=== PATIENT | female | born 1995 | race Caucasian/White ===

== ENCOUNTER 2023-09-25 15:42 | Emergency (ER) | payer OTHER, SELFPAY ==
[2023-09-25 15:45] VITALS: BP 137/87
[2023-09-25 16:17] LABS: % Basophils 0.2 % (0-2); % Eosinophils 1.1 % (0-6); % Immature Granulocytes 0.6 % (0-0.5); % Monocytes 3.9 % (1.7-9.3); % Neutrophils 81.2 % (42.2-75.2); Absolute Eosinophils 0.1 10^3/uL (0-0.7); Absolute Immature Granulocytes 0.1 10^3/uL (0-0.05); Absolute Lymphocytes 1.2 10^3/uL (1.2-3.4); Absolute Monocytes 0.4 10^3/uL (0.1-0.6); Absolute Neutrophils 7.7 10^3/uL (1.4-6.5); Hemoglobin 11.9 g/dL (12.0-16.0); Mean Corpuscular Hgb 29.8 pg (27.0-31.0); Mean Corpuscular Volume 85.2 fL (81.0-99.0); Mean Platelet Volume 10.6 fL (7.4-10.4); Nucleated Red Blood Cells % 0 %; Platelet Count 338 10^3/uL (130-400); Red Blood Cell Count 3.99 10^6/uL (4.20-5.40); Red Cell Dist. Width 14.1 % (11.5-14.5); White Blood Cell Count 9.4 10^3/uL (4.8-10.8)
[2023-09-25 16:32] LABS: ALT (SGPT) 23 U/L (0-35); AST (SGOT) 23 U/L (14-36); Albumin 4.1 g/dl (3.5-5.0); Alkaline Phosphatase 81 U/L (38-126); Blood Urea Nitrogen 6 mg/dl (7-17); Calcium 9.7 mg/dl (8.4-10.2); Carbon Dioxide 18 mmol/L (22-30); Chloride 105 mmol/L (98-107); Glucose 84 mg/dl (70-99); Potassium 3.9 mmol/L (3.5-5.1); Sodium 133 mmol/L (135-145); Total Bilirubin 0.5 mg/dl (0.2-1.3); Total Protein 7.1 g/dl (6.3-8.2); eGFR > 60.00
[2023-09-25] MEDS: NSS 1000 IV (18:07)
[2023-09-25] MEDS: ZOFRAN 4 MG IV (18:08)
[2023-09-25 18:17] VITALS: BP 120/87
--- NOTE | 2023-09-25 19:59 | ED.GENMED ---
History of Present Illness
General
Chief Complaint: Abdominal Symptoms
Source: patient
Exam Limitations: none
Time Seen by Provider: 09/25/23 17:38
Nursing documentation reviewed up to this point in time: agreed with
History of Present Illness
History of Present Illness:
Patient to ED wt complaint of worsening n/v. She is 15weeks . States she has had episodes of n/v since becoming , increasing in frequency. Denes any abdominal or back pain. Denies any cramping. No vaginal bleeding Brought to
ED by spouse for eval.
Past History
Past History
ED Past Medical History: None
ED Past Surgical History: None
Review of Systems
Review of Systems
Allergies reviewed?: Yes
All Other Systems: ROS reviewed and negative except as documented in HPI and ROS
Constitutional: Reports no symptoms
EENT: Reports no symptoms
Respiratory: Reports no symptoms
Cardiac: Reports no symptoms
ABD/GI: Reports nausea and vomiting
: Reports no symptoms
Musculoskeletal: Reports no symptoms
Skin: Reports no symptoms
Neurological: Reports no symptoms
Psychiatric: Reports no symptoms
Phy Exam
General Physical Exam
General Presentation: mild distress
General age: appears stated age
General Skin: warm and dry
General Habitus: normal
General Mental: alert
Gastrointestinal Exam
Gastrointestinal Exam: non tender and soft
Musculoskeletal Exam
Musculoskeletal Exam: full ROM and neuro vasc intact
Skin Exam
Skin Exam: normal color, warm/dry and no rash
Psychiatric Exam
Psychiatric Exam: normal mood/affect
Course
Orders/Labs/Results
Orders:
Orders
09/25/23 15:54
Complete Blood Count/With Diff Urgent
Comprehensive Metabolic Panel Urgent
09/25/23 17:51
0.9% Sodium Chloride 1000 ml [Nss] 1,000 ml IV BOLUS
09/25/23 17:55
0.9% Sodium Chloride 1000 ml [Nss] 1,000 ml IV BOLUS
Ondansetron Injectable [Zofran] 4 mg IV NOW STA
09/25/23 19:56
Ondansetron Orally Disint [Zofran Odt (Orally Disintegrating)] 4 mg PO NOW STA
Abnormal Lab Results
09/25/23
15:54
RBC 3.99 L 10^6/uL
(4.20-5.40)
Hgb 11.9 L g/dL
(12.0-16.0)
Hct 34.0 L %
(37.0-47.0)
MPV 10.6 H fL
(7.4-10.4)
Abs Immat Gran (auto) 0.1 H 10^3/uL
(0-0.05)
Absolute Neuts (auto) 7.7 H 10^3/uL
(1.4-6.5)
Immature Gran % 0.6 H %
(0-0.5)
Neutrophils % 81.2 H %
(42.2-75.2)
Lymphocytes % 13.0 L %
(20.5-51.1)
Sodium 133 L mmol/L
(135-145)
Carbon Dioxide 18 L mmol/L
(22-30)
BUN 6 L mg/dl
(7-17)
Creatinine 0.5 L mg/dL
(0.6-1.0)
09/25/23 15:54
09/25/23 15:54
Vital Signs
Initial and Last Documented VS:
Initial Vital Signs
Temp Pulse Resp BP Pulse Ox
98.0 F 102 16 137/87 98
09/25/23 15:45 09/25/23 15:45 09/25/23 15:45 09/25/23 15:45 09/25/23 15:45
Last Documented Vital Signs
Temp Pulse Resp BP Pulse Ox
98.2 F 101 17 122/81 100
09/25/23 20:05 09/25/23 20:05 09/25/23 18:17 09/25/23 20:05 09/25/23 20:05
*Critical Care Note
Total Time (30-74mins, 75-104mins- exclusive of procedures): Not Applicable
Update Note
Update Note:
Improved iwth IVF and zofran. No futher n/v in dept. WIll discharge home. Rx for diclegis sent to her pharmacy. She will follow up with OB in AM. Given instructions ons/s to return to ED and she is agreeable to plan.
ED Attending Note
-
Portions of this chart may have been created with voice recognition software.� Occasional wrong word or��sound alike� substitutions may have occurred due to the inherent limitations of voice recognition software.
Discharge Plan
Departure
Patient Disposition: Home (Routine Discharge)
Date of Disposition: 09/25/23
Time of Disposition: 19:59
Patient with high blood pressure during this ER visit?: No
Condition: Good
Covid-19: Not Applicable
Discharge Problem:
Hyperemesis gravidarum
Instructions: Hyperemesis Gravidarum (DC)
Prescriptions:
New
doxylamine-pyridoxine (vit B6) [Diclegis] 10-10 mg tablet,delayed release (DR/EC)
1 tab PO DAILY PRN (Reason: nausea and vomiting) Qty: 30 0RF
Rx Instructions:
2 tabs at bedtime days 1 and 2. May increase to 1 tab in the AM, 2 tabs at bedtime.
Referrals:
Mick Singer MD [Family Provider] -
Arlene Klein MD [Active] - Tomorrow
Interventions
Interventions:
*Risk Screen - Suicide Last Done: 09/25/23 20:06
*General Assessment Last Done: 09/25/23 20:06
*Neglect/Abuse Screening Last Done: 09/25/23 20:06
ED- Fall Risk Assessment Last Done: 09/25/23 20:10
*Nursing Disposition Last Done: 09/25/23 20:10
VD-Cimmmw-Qhyketqsqa Assessment Last Done: 09/25/23 18:19
Discharge Date and Time
Discharge Date/Time: 09/25/23 20:10
Print Language: BRUNEIAN
[2023-09-25] MEDS: ZOFRAN ODT (ORALLY DISINTEGRATING) 4 MG PO (20:01)
[2023-09-25 20:05] VITALS: BP 122/81
== END 2023-09-25 20:10 | disposition home or self-care (01) ==
LOC: EMR 15:42
PROVIDERS: EMERGENCY PHYSICIAN Emergency Medicine; FAMILY PHYSICIAN Family Medicine
DX: O21.0 Mild hyperemesis gravidarum (principal); Z3A.15 15 weeks gestation of pregnancy; Z88.1 Allergy status to other antibiotic agents
CPT/HCPCS: 99284; 96374; 96361; 80053; 85025

== ENCOUNTER → 2023-10-03 17:08 | Outpatient (REF) | payer OTHER, SELFPAY | LOC: PNTC 17:08 | PROVIDERS: ATTENDING PHYSICIAN Obstetrics & Gynecology | DX: O99.210 Obesity complicating pregnancy, unspecified trimester (principal) | CPT/HCPCS: 76805 ==

== ENCOUNTER → 2023-10-31 17:35 | Outpatient (REF) | payer OTHER, SELFPAY | LOC: PNTC 17:35 | PROVIDERS: ATTENDING PHYSICIAN Obstetrics & Gynecology | DX: O99.210 Obesity complicating pregnancy, unspecified trimester (principal) | CPT/HCPCS: 76811 ==

== ENCOUNTER → 2023-12-12 17:05 | Outpatient (REF) | payer OTHER, SELFPAY | LOC: PNTC 17:05 | PROVIDERS: ATTENDING PHYSICIAN Obstetrics & Gynecology | DX: O99.210 Obesity complicating pregnancy, unspecified trimester (principal) | CPT/HCPCS: 76816 ==

== ENCOUNTER → 2024-01-11 17:12 | Outpatient (REF) | payer OTHER, SELFPAY | LOC: PNTC 17:12 | PROVIDERS: ATTENDING PHYSICIAN Obstetrics & Gynecology | DX: O99.210 Obesity complicating pregnancy, unspecified trimester (principal) | CPT/HCPCS: 76816 ==

== ENCOUNTER → 2024-02-06 17:16 | Outpatient (REF) | payer OTHER, SELFPAY | LOC: PNTC 17:16 | PROVIDERS: ATTENDING PHYSICIAN Obstetrics & Gynecology | DX: O99.210 Obesity complicating pregnancy, unspecified trimester (principal) | CPT/HCPCS: 59025; 76816 ==

== ENCOUNTER → 2024-02-13 10:18 | Outpatient (REF) | payer OTHER, SELFPAY | LOC: PNTC 10:18 | PROVIDERS: ATTENDING PHYSICIAN Obstetrics & Gynecology | DX: O99.210 Obesity complicating pregnancy, unspecified trimester (principal) | CPT/HCPCS: 59025; 76815 ==

== ENCOUNTER → 2024-02-19 13:34 | Outpatient (REF) | payer OTHER, SELFPAY | LOC: PNTC 13:34 | PROVIDERS: ATTENDING PHYSICIAN Obstetrics & Gynecology | DX: O99.210 Obesity complicating pregnancy, unspecified trimester (principal) | CPT/HCPCS: 59025; 76815 ==

== ENCOUNTER → 2024-02-29 17:04 | Outpatient (REF) | payer OTHER, SELFPAY | LOC: PNTC 17:04 | PROVIDERS: ATTENDING PHYSICIAN Obstetrics & Gynecology | DX: O99.210 Obesity complicating pregnancy, unspecified trimester (principal) | CPT/HCPCS: 59025 ==

== ENCOUNTER → 2024-03-07 16:57 | Outpatient (REF) | payer OTHER, SELFPAY | LOC: PNTC 16:57 | PROVIDERS: ATTENDING PHYSICIAN Obstetrics & Gynecology | DX: O99.210 Obesity complicating pregnancy, unspecified trimester (principal) | CPT/HCPCS: 59025 ==

== ENCOUNTER 2024-03-12 19:10 | Inpatient (IN) | payer OTHER, SELFPAY ==
[2024-03-12 19:46] VITALS: BP 136/88; BMI 42.1
[2024-03-12 19:52] LABS: % Basophils 0.5 % (0-2); % Eosinophils 1.2 % (0-6); % Immature Granulocytes 1.7 % (0-0.5); % Lymphocytes 21.6 % (20.5-51.1); % Monocytes 4.9 % (1.7-9.3); % Neutrophils 70.1 % (42.2-75.2); Absolute Eosinophils 0.1 10^3/uL (0-0.7); Absolute Immature Granulocytes 0.1 10^3/uL (0-0.05); Absolute Lymphocytes 1.7 10^3/uL (1.2-3.4); Absolute Monocytes 0.4 10^3/uL (0.1-0.6); Absolute Neutrophils 5.6 10^3/uL (1.4-6.5); Hematocrit 31.9 % (37.0-47.0); Hemoglobin 10.8 g/dL (12.0-16.0); Mean Corp Hgb Conc. 33.9 g/dL (33.0-37.0); Mean Corpuscular Hgb 30.3 pg (27.0-31.0); Mean Corpuscular Volume 89.4 fL (81.0-99.0); Mean Platelet Volume 11.1 fL (7.4-10.4); Nucleated Red Blood Cells % 0 %; Platelet Count 289 10^3/uL (130-400); Red Blood Cell Count 3.57 10^6/uL (4.20-5.40); Red Cell Dist. Width 14.8 % (11.5-14.5)
[2024-03-12] MEDS: CYTOTEC 50 MICROGRAM VAG (20:18)
[2024-03-12 20:45] LABS: ALT (SGPT) 49 U/L (0-35); AST (SGOT) 58 U/L (14-36); Albumin 3.8 g/dl (3.5-5.0); Alkaline Phosphatase 158 U/L (38-126); Blood Urea Nitrogen 9 mg/dl (7-17); Calcium 9.4 mg/dl (8.4-10.2); Carbon Dioxide 21 mmol/L (22-30); Chloride 101 mmol/L (98-107); Estimated Creatinine Clearance > 125 ml/min; Glucose 103 mg/dl (70-99); Potassium 3.7 mmol/L (3.5-5.1); Sodium 134 mmol/L (135-145); Total Bilirubin 0.4 mg/dl (0.2-1.3); Total Protein 6.7 g/dl (6.3-8.2); eGFR > 60.00
[2024-03-13] MEDS: CYTOTEC PO ×5 (03:15→20:18)
[2024-03-13] MEDS: CYTOTEC 50 MICROGRAM PO (03:51)
--- NOTE | 2024-03-13 04:35 | DOWNTIME ---
There was a [employer] Client Disability Attorney Downtime on 03/13/2024 from 0100 to 03/13/2023 at 0205 . Downtime documentation of patient's care, including medication administrations, has been reconciled in the electronic record per guidelines. Refer to the
patient's paper chart under the miscellaneous tab to see printed paper medication records and downtime forms.
[2024-03-13] MEDS: TUMS CHEWABLE TABLET 400 MG PO (05:00)
[2024-03-13] MEDS: ZOFRAN 4 MG IV ×2 (05:44→17:10)
[2024-03-13 09:10] LABS: % Basophils 0.3 % (0-2); % Eosinophils 0.4 % (0-6); % Lymphocytes 9.5 % (20.5-51.1); % Monocytes 5.6 % (1.7-9.3); % Neutrophils 83.2 % (42.2-75.2); Absolute Eosinophils 0.1 10^3/uL (0-0.7); Absolute Immature Granulocytes 0.1 10^3/uL (0-0.05); Absolute Lymphocytes 1.2 10^3/uL (1.2-3.4); Absolute Monocytes 0.7 10^3/uL (0.1-0.6); Absolute Neutrophils 10.3 10^3/uL (1.4-6.5); Hematocrit 29.8 % (37.0-47.0); Hemoglobin 10.3 g/dL (12.0-16.0); Mean Corp Hgb Conc. 34.6 g/dL (33.0-37.0); Mean Corpuscular Volume 89.8 fL (81.0-99.0); Mean Platelet Volume 11.2 fL (7.4-10.4); Nucleated Red Blood Cells % 0 %; Platelet Count 269 10^3/uL (130-400); Red Blood Cell Count 3.32 10^6/uL (4.20-5.40); Red Cell Dist. Width 14.7 % (11.5-14.5); White Blood Cell Count 12.4 10^3/uL (4.8-10.8)
[2024-03-13] MEDS: LR 1000 IV ×2 (09:14→18:08)
[2024-03-13] MEDS: PITOCIN 30 UNITS/NSS 500 ML IV (09:14)
[2024-03-13 09:26] LABS: ALT (SGPT) 50 U/L (0-35); AST (SGOT) 52 U/L (14-36); Albumin 3.5 g/dl (3.5-5.0); Alkaline Phosphatase 168 U/L (38-126); Blood Urea Nitrogen 9 mg/dl (7-17); Calcium 9.1 mg/dl (8.4-10.2); Carbon Dioxide 20 mmol/L (22-30); Chloride 104 mmol/L (98-107); Estimated Creatinine Clearance > 125 ml/min; Glucose 86 mg/dl (70-99); Potassium 3.5 mmol/L (3.5-5.1); Sodium 134 mmol/L (135-145); Total Bilirubin 0.5 mg/dl (0.2-1.3); Total Protein 6.3 g/dl (6.3-8.2); eGFR > 60.00
[2024-03-13] MEDS: STADOL 1 MG IV (11:10)
[2024-03-13] MEDS: FENTANYL/BUPIVACAINE 100 EPIDURAL ×2 (12:56→21:19)
[2024-03-13] MEDS: SUBLIMAZE 100 MCG EPIDURAL (12:56)
[2024-03-13 19:55] LABS: Hematocrit 32.3 % (37.0-47.0); Hemoglobin 10.7 g/dL (12.0-16.0); Mean Corp Hgb Conc. 33.1 g/dL (33.0-37.0); Mean Corpuscular Hgb 30.4 pg (27.0-31.0); Mean Corpuscular Volume 91.8 fL (81.0-99.0); Platelet Count 289 10^3/uL (130-400); Red Blood Cell Count 3.52 10^6/uL (4.20-5.40); Red Cell Dist. Width 14.9 % (11.5-14.5); White Blood Cell Count 13.7 10^3/uL (4.8-10.8)
[2024-03-13 20:11] LABS: ALT (SGPT) 48 U/L (0-35); AST (SGOT) 49 U/L (14-36); Albumin 3.4 g/dl (3.5-5.0); Alkaline Phosphatase 168 U/L (38-126); Blood Urea Nitrogen 9 mg/dl (7-17); Calcium 8.8 mg/dl (8.4-10.2); Carbon Dioxide 21 mmol/L (22-30); Chloride 103 mmol/L (98-107); Estimated Creatinine Clearance > 125 ml/min; Glucose 96 mg/dl (70-99); Sodium 134 mmol/L (135-145); Total Bilirubin 0.6 mg/dl (0.2-1.3); eGFR > 60.00
[2024-03-14] MEDS: LR 1000 IV ×2 (00:36→09:58)
[2024-03-14] MEDS: FENTANYL/BUPIVACAINE 100 EPIDURAL ×2 (05:28→13:32)
[2024-03-14 10:04] LABS: Hemoglobin 9.9 g/dL (12.0-16.0); Mean Corp Hgb Conc. 34.1 g/dL (33.0-37.0); Mean Corpuscular Hgb 30.7 pg (27.0-31.0); Mean Corpuscular Volume 90.1 fL (81.0-99.0); Mean Platelet Volume 11.3 fL (7.4-10.4); Platelet Count 272 10^3/uL (130-400); Red Blood Cell Count 3.22 10^6/uL (4.20-5.40); Red Cell Dist. Width 15.1 % (11.5-14.5); White Blood Cell Count 15.7 10^3/uL (4.8-10.8)
[2024-03-14 10:12] LABS: ALT (SGPT) 45 U/L (0-35); AST (SGOT) 44 U/L (14-36); Alkaline Phosphatase 167 U/L (38-126); Blood Urea Nitrogen 13 mg/dl (7-17); Calcium 8.4 mg/dl (8.4-10.2); Carbon Dioxide 19 mmol/L (22-30); Chloride 104 mmol/L (98-107); Estimated Creatinine Clearance 77 ml/min; Glucose 112 mg/dl (70-99); Potassium 3.5 mmol/L (3.5-5.1); Sodium 134 mmol/L (135-145); Total Bilirubin 0.6 mg/dl (0.2-1.3); Total Protein 5.6 g/dl (6.3-8.2); eGFR > 60.00
[2024-03-14] MEDS: CLEOCIN 50 IV (13:47)
[2024-03-14] MEDS: GENTAMICIN 60 MG IV (14:23)
[2024-03-14] MEDS: BICITRA 30 ML PO (15:01)
[2024-03-14] MEDS: TYLENOL 1000 MG PO (15:01)
[2024-03-14] MEDS: ZITHROMAX INFUSION 250 IV (15:04)
[2024-03-14] MEDS: TORADOL 15 MG IV ×2 (17:36→23:02)
[2024-03-14] MEDS: MAGNESIUM SULFATE 100 IV (17:46)
[2024-03-14 18:07] LABS: Protein/creatinine Ratio 0.4; Urine Protein 87 mg/dl
[2024-03-14] MEDS: MAGNESIUM SULFATE 40 GRAM 1000 IV ×2 (18:10→18:25)
[2024-03-14 18:25] LABS: Hematocrit 29.1 % (37.0-47.0); Hemoglobin 9.8 g/dL (12.0-16.0); Mean Corp Hgb Conc. 33.7 g/dL (33.0-37.0); Mean Corpuscular Hgb 30.6 pg (27.0-31.0); Mean Corpuscular Volume 90.9 fL (81.0-99.0); Platelet Count 253 10^3/uL (130-400); Red Cell Dist. Width 15.2 % (11.5-14.5); White Blood Cell Count 17.2 10^3/uL (4.8-10.8)
[2024-03-14 18:42] LABS: ALT (SGPT) 44 U/L (0-35); AST (SGOT) 41 U/L (14-36); Albumin 2.7 g/dl (3.5-5.0); Alkaline Phosphatase 165 U/L (38-126); Blood Urea Nitrogen 14 mg/dl (7-17); Calcium 8.3 mg/dl (8.4-10.2); Carbon Dioxide 18 mmol/L (22-30); Chloride 105 mmol/L (98-107); Estimated Creatinine Clearance 71 ml/min; Glucose 105 mg/dl (70-99); Potassium 3.5 mmol/L (3.5-5.1); Sodium 132 mmol/L (135-145); Total Bilirubin 0.4 mg/dl (0.2-1.3); Total Protein 5.3 g/dl (6.3-8.2); eGFR 56.38
[2024-03-14] MEDS: ZOFRAN 4 MG IV (23:07)
[2024-03-15] MEDS: LR 1000 IV ×3 (00:05→13:09)
[2024-03-15 00:42] LABS: Hematocrit 28.5 % (37.0-47.0); Hemoglobin 9.9 g/dL (12.0-16.0); Mean Corp Hgb Conc. 34.7 g/dL (33.0-37.0); Mean Corpuscular Hgb 31.1 pg (27.0-31.0); Mean Corpuscular Volume 89.6 fL (81.0-99.0); Mean Platelet Volume 11.2 fL (7.4-10.4); Platelet Count 255 10^3/uL (130-400); Red Blood Cell Count 3.18 10^6/uL (4.20-5.40); Red Cell Dist. Width 14.7 % (11.5-14.5); White Blood Cell Count 18.2 10^3/uL (4.8-10.8)
[2024-03-15 01:40] LABS: ALT (SGPT) 43 U/L (0-35); AST (SGOT) 46 U/L (14-36); Blood Urea Nitrogen 13 mg/dl (7-17); Calcium 8.6 mg/dl (8.4-10.2); Carbon Dioxide 14 mmol/L (22-30); Chloride 106 mmol/L (98-107); Estimated Creatinine Clearance 84 ml/min; Glucose 115 mg/dl (70-99); Magnesium 3.8 mg/dl (1.6-2.3); Potassium 3.6 mmol/L (3.5-5.1); Sodium 132 mmol/L (135-145); eGFR > 60.00
[2024-03-15] MEDS: TORADOL 15 MG IV ×2 (05:03→11:00)
[2024-03-15 07:28] LABS: Hematocrit 26.7 % (37.0-47.0); Hemoglobin 9.1 g/dL (12.0-16.0); Mean Corp Hgb Conc. 34.1 g/dL (33.0-37.0); Mean Corpuscular Volume 90.8 fL (81.0-99.0); Mean Platelet Volume 11.3 fL (7.4-10.4); Platelet Count 252 10^3/uL (130-400); Red Blood Cell Count 2.94 10^6/uL (4.20-5.40); Red Cell Dist. Width 14.9 % (11.5-14.5); White Blood Cell Count 13.3 10^3/uL (4.8-10.8)
[2024-03-15 07:59] LABS: ALT (SGPT) 36 U/L (0-35); AST (SGOT) 32 U/L (14-36); Blood Urea Nitrogen 13 mg/dl (7-17); Calcium 8.2 mg/dl (8.4-10.2); Carbon Dioxide 21 mmol/L (22-30); Chloride 103 mmol/L (98-107); Estimated Creatinine Clearance 103 ml/min; Glucose 96 mg/dl (70-99); Magnesium 4.4 mg/dl (1.6-2.3); Potassium 3.3 mmol/L (3.5-5.1); Sodium 133 mmol/L (135-145); eGFR > 60.00
[2024-03-15] MEDS: PRENATAL PLUS 1 TABLET PO (08:17)
[2024-03-15] MEDS: FEOSOL 325 MG PO (08:17)
--- NOTE | 2024-03-15 08:17 | W.PN.ANS.POP ---
Anesthesia Post Operative
- Anesthesia Post Op Note
Vital Signs Stable-See Nursing Note: Yes
Airway Patent: Yes
Adequate Pain Control: Yes
Change in Mental Status: No
Current Postoperative Nausea & Vomiting: No
Anesthesia Complications: No
General Anesthetic Recall: No
Unplanned Admission: No
Post Op Hydration Adequate: Yes
- -
Pt doing well, resting in bed, VSS.. no N/V at time of post op visit.
[2024-03-15 15:06] LABS: Syphilis/T. pallidum Ab Reflex Negative (Negative)
[2024-03-15] MEDS: MOTRIN 600 MG PO (19:30)
[2024-03-15] MEDS: TYLENOL 650 MG PO (19:31)
[2024-03-16] MEDS: MOTRIN 600 MG PO ×4 (01:35→22:45)
[2024-03-16] MEDS: TYLENOL 650 MG PO ×3 (01:35→22:45)
[2024-03-16] MEDS: MYLICON 80 MG PO (09:48)
[2024-03-16] MEDS: PRENATAL PLUS 1 TABLET PO (09:48)
[2024-03-16] MEDS: FEOSOL 325 MG PO (09:48)
[2024-03-16 10:34] LABS: Hematocrit 29.6 % (37.0-47.0); Hemoglobin 10.1 g/dL (12.0-16.0); Mean Corp Hgb Conc. 34.1 g/dL (33.0-37.0); Mean Corpuscular Hgb 30.2 pg (27.0-31.0); Mean Corpuscular Volume 88.6 fL (81.0-99.0); Mean Platelet Volume 10.7 fL (7.4-10.4); Platelet Count 284 10^3/uL (130-400); Red Blood Cell Count 3.34 10^6/uL (4.20-5.40); Red Cell Dist. Width 15.1 % (11.5-14.5); White Blood Cell Count 9.6 10^3/uL (4.8-10.8)
[2024-03-16 10:48] LABS: ALT (SGPT) 32 U/L (0-35); AST (SGOT) 32 U/L (14-36); Albumin 2.7 g/dl (3.5-5.0); Alkaline Phosphatase 123 U/L (38-126); Blood Urea Nitrogen 11 mg/dl (7-17); Calcium 8.3 mg/dl (8.4-10.2); Carbon Dioxide 24 mmol/L (22-30); Chloride 103 mmol/L (98-107); Estimated Creatinine Clearance > 125 ml/min; Glucose 114 mg/dl (70-99); Potassium 3.3 mmol/L (3.5-5.1); Sodium 135 mmol/L (135-145); Total Bilirubin 0.3 mg/dl (0.2-1.3); Total Protein 5.2 g/dl (6.3-8.2); eGFR > 60.00
[2024-03-16] MEDS: KCL 40 MEQ PO (12:02)
[2024-03-17] MEDS: MOTRIN 600 MG PO (05:01)
[2024-03-17] MEDS: TYLENOL 650 MG PO (05:01)
[2024-03-17 05:59] LABS: ALT (SGPT) 37 U/L (0-35); AST (SGOT) 38 U/L (14-36); Albumin 2.9 g/dl (3.5-5.0); Alkaline Phosphatase 127 U/L (38-126); Blood Urea Nitrogen 10 mg/dl (7-17); Calcium 8.5 mg/dl (8.4-10.2); Carbon Dioxide 25 mmol/L (22-30); Chloride 106 mmol/L (98-107); Estimated Creatinine Clearance > 125 ml/min; Glucose 81 mg/dl (70-99); Potassium 3.6 mmol/L (3.5-5.1); Sodium 139 mmol/L (135-145); Total Bilirubin 0.2 mg/dl (0.2-1.3); Total Protein 5.4 g/dl (6.3-8.2); eGFR > 60.00
[2024-03-17] MEDS: FEOSOL 325 MG PO (07:59)
[2024-03-17] MEDS: PRENATAL PLUS 1 TABLET PO (07:59)
--- NOTE | 2024-03-17 11:22 | W.DS.TRANS ---
DC Summary - Painting Instructor
-
Discharge Instructions:
Discharge Diagnosis/Procedures 39w3d; preeclampsia with severe
features; arrest of dilation, primary low
transverse section. magnesium sulfate
prophylaxis.
Diet Regular
Activity No strenuous activity
Driving Restrictions No driving for 2 weeks
Bathing Restrictions OK to Shower
Instructions:
Stand-Alone Forms: LDRP Delivery
LDRP Hypertensive Disorders
Changes to Home Medications: No
Discharge Medications:
DC Medications w/original date entered in [facility] [place] [place]
Vitamin 1 tab PO DAILY 03/12/24
iron 325 mg PO DAILY 03/12/24
acetaminophen 325 mg tablet 650 mg (2 x 325 mg) PO Q4HPRN PRN mild pain #0 tabs 03/17/24
calcium carbonate (Calcium Antacid) 400 mg (2 x 200 mg calcium (500 mg)) PO Q6HPRN PRN indigestion #0 tabs 03/17/24
ibuprofen 600 mg tablet 600 mg PO Q6HPRN PRN cramps #40 tabs 03/17/24
sennosides 8.6 mg-docusate sodium 50 mg tablet 1 tab PO DAILYPRN PRN constipation #0 tabs 03/17/24
simethicone 80 mg chewable tablet 80 mg PO TIDPRN PRN flatulence #0 tabs 03/17/24
Home Medication Changes
Pending Results: No
Total time spent discharging patient (in min): 30
--- NOTE | 2024-03-20 07:39 | PN.CDI ---
CDI
- -
CDI:
Physician Documentation Request
Admit Date: 03/12/24 19:10
Dear Doctor Tomasz,
Please review the following and provide your response in the progress notes.
Clinical Indicators:
'Anemia secondary to blood loss' is documented on the Discharge Summary.
Based on the above, could you clarify, in your progress note, which of the following is the most likely type of anemia you are evaluating, monitoring and/or treating?
Acute blood loss anemia
Acute blood loss anemia with baseline chronic anemia (Specify type)
Anemia of chronic disease - indicate if neoplastic disease, CKD or other
Chronic iron deficiency anemia due to blood loss
Other
Unable to determine
Use of terms such as suspected, likely, concern for, or probable (associated with a specific diagnosis that is being evaluated, monitored, or treated as if it exists) are acceptable and can be coded in the inpatient setting, when documented at the
time of discharge.
Thank you,
Kalpana Urrutia
Commercial Housekeeper
Please use your independent medical judgment in providing your response.
== END 2024-03-17 13:47 | disposition home or self-care (01) | DRG 788 ==
LOC: LDRP 19:10
PROVIDERS: Obstetrics & Gynecology; Student in an Organized Health Care Education/Training Program; ADMITTING PHYSICIAN Obstetrics & Gynecology; FAMILY PHYSICIAN Family Medicine
PROC: 3E033VJ Introduction of Other Hormone into Peripheral Vein, Percutaneous Approach (ICD-10-PCS; 2024-03-12)
PROC: 3E0P7VZ Introduction of Hormone into Female Reproductive, Via Natural or Artificial Opening (ICD-10-PCS; 2024-03-12)
PROC: 10D00Z1 Extraction of Products of Conception, Low, Open Approach (ICD-10-PCS; 2024-03-14)
DX: O36.63X0 Maternal care for excessive fetal growth, third trimester, not applicable or unspecified (principal); Z3A.39 39 weeks gestation of pregnancy; Z37.0 Single live birth; O14.14 Severe pre-eclampsia complicating childbirth; O62.0 Primary inadequate contractions; O34.13 Maternal care for benign tumor of corpus uteri, third trimester; O90.81 Anemia of the puerperium; D50.0 Iron deficiency anemia secondary to blood loss (chronic)
CPT/HCPCS: 80048; 80053; 82570; 83735; 84156; 84450; 84460; 85025; 85027; 86780; 86850; 86900; 86901; 87045; 87046; 87324; 87427; 87449

== ENCOUNTER 2024-03-23 12:50 | Emergency (ER) | payer OTHER, SELFPAY ==
[2024-03-23 13:01] VITALS: BP 159/99
[2024-03-23 13:28] LABS: % Basophils 0.5 % (0-2); % Eosinophils 1.2 % (0-6); % Immature Granulocytes 1.8 % (0-0.5); % Lymphocytes 11.6 % (20.5-51.1); % Monocytes 4.4 % (1.7-9.3); % Neutrophils 80.5 % (42.2-75.2); Absolute Basophils 0.1 10^3/uL (0-0.2); Absolute Eosinophils 0.1 10^3/uL (0-0.7); Absolute Immature Granulocytes 0.2 10^3/uL (0-0.05); Absolute Lymphocytes 1.3 10^3/uL (1.2-3.4); Absolute Monocytes 0.5 10^3/uL (0.1-0.6); Absolute Neutrophils 8.9 10^3/uL (1.4-6.5); Hematocrit 27.3 % (37.0-47.0); Hemoglobin 9.3 g/dL (12.0-16.0); Mean Corp Hgb Conc. 34.1 g/dL (33.0-37.0); Mean Corpuscular Volume 88.1 fL (81.0-99.0); Mean Platelet Volume 9.1 fL (7.4-10.4); Nucleated Red Blood Cells % 0 %; Platelet Count 472 10^3/uL (130-400); Red Cell Dist. Width 14.4 % (11.5-14.5); White Blood Cell Count 11.1 10^3/uL (4.8-10.8)
[2024-03-23 13:46] LABS: Lactic Acid 1.1 mmol/L (0.7-2.0)
[2024-03-23 13:47] LABS: ALT (SGPT) 45 U/L (0-35); AST (SGOT) 42 U/L (14-36); Albumin 3.7 g/dl (3.5-5.0); Alkaline Phosphatase 116 U/L (38-126); Blood Urea Nitrogen 11 mg/dl (7-17); Calcium 8.9 mg/dl (8.4-10.2); Carbon Dioxide 19 mmol/L (22-30); Chloride 108 mmol/L (98-107); Glucose 89 mg/dl (70-99); Potassium 4.2 mmol/L (3.5-5.1); Sodium 139 mmol/L (135-145); Total Bilirubin 0.7 mg/dl (0.2-1.3); Total Protein 6.8 g/dl (6.3-8.2); eGFR > 60.00
--- NOTE | 2024-03-23 17:59 | ED.GENMED ---
History of Present Illness
General
Chief Complaint: Post Operative Problem(s)
Source: patient
Exam Limitations: none
Time Seen by Provider: 03/23/24 17:47
History of Present Illness
History of Present Illness:
See MDM
Past History
Past History
ED Past Medical History: None
ED Past Surgical History:
Social History
Tobacco: Non-smoker
Alcohol: None
Phy Exam
Physical Exam
Physical Exam:
See MDM
Course
Orders/Labs/Results
Orders:
Orders
03/23/24 13:09
Complete Blood Count/With Diff Urgent
Comprehensive Metabolic Panel Urgent
Lactic Acid Q4H
Comment: ON ICE, CANCEL 2ND ORDER IF FIRST LACTIC ACID LEVEL <2
03/23/24 17:57
Morphine Sulfate 4 mg IV NOW STA
03/23/24 18:24
0.9% Sodium Chloride 1000 ml [Nss] 1,000 ml IV BOLUS
03/23/24 18:40
Wound Culture [Wound/Abscess/Other Culture] Urgent
KARON Source: Abscess
Specimen Description:
Date Specimen was Collected: 03/23/24
Time Specimen was Collected: 18:32
Comment: site
03/23/24 20:33
Oxycodone/Acetaminophen [Percocet 5/325] 1 tablet PO NOW STA
03/23/24 20:45
Clindamycin 600 mg/50 ml [Cleocin] 600 mg in 50 ml IV NOW
Abnormal Lab Results
03/23/24
13:09
WBC 11.1 H 10^3/uL
(4.8-10.8)
RBC 3.10 L 10^6/uL
(4.20-5.40)
Hgb 9.3 L g/dL
(12.0-16.0)
Hct 27.3 L %
(37.0-47.0)
Plt Count 472 H 10^3/uL
(130-400)
Abs Immat Gran (auto) 0.2 H 10^3/uL
(0-0.05)
Absolute Neuts (auto) 8.9 H 10^3/uL
(1.4-6.5)
Immature Gran % 1.8 H %
(0-0.5)
Neutrophils % 80.5 H %
(42.2-75.2)
Lymphocytes % 11.6 L %
(20.5-51.1)
Chloride 108 H mmol/L
(98-107)
Carbon Dioxide 19 L mmol/L
(22-30)
AST 42 H U/L
(14-36)
ALT 45 H U/L
(0-35)
03/23/24 13:09
03/23/24 13:09
Vital Signs
Initial and Last Documented VS:
Initial Vital Signs
Temp Pulse Resp BP Pulse Ox
98.6 F 104 16 159/99 98
03/23/24 13:01 03/23/24 13:01 03/23/24 13:01 03/23/24 13:01 03/23/24 13:01
Last Documented Vital Signs
Temp Pulse Resp BP Pulse Ox
100.1 F 130 16 156/97 94
03/23/24 19:33 03/23/24 20:00 03/23/24 19:33 03/23/24 20:00 03/23/24 20:00
MDM/Problems Addressed
Differential Diagnosis Includes:
HPI and MDM Narrative:
29-year-old female presenting for evaluation of swelling, discharge and tenderness to her incision. She is postop day 9. She is G1, P1. Patient noted worsening symptoms over the past few days. She denies fevers. On exam, she is tender
along the incision. There is surrounding cellulitic skin changes and there is purulent discharge. Will discuss case with OB in regards to concern for postoperative infected seroma
Physical exam
General: Mildly uncomfortable
HEENT: protecting airway
Neck: appears supple
CV: No evidence of cyanosis
Resp: No accessory muscle use
Abd: Non-distended. Erythema and discharge around incision
Extremities: No deformities
Neuro: alert
Psych: Normal affect
Skin: Intact
Problems Addressed including Acute and Chronic Conditions affecting care:
1. Postoperative infection
Acuity: acute
Prognosis: stable
Details: Will discuss case with OB in regards to diagnostic imaging to rule out underlying abscess and whether or not to start IV antibiotic and admit
2. Hypertension
Acuity: acute
Prognosis: unstable
Details: Given the concern for preeclampsia, OB recommending admission
Updates
8:30 PM OB did come down to evaluate the patient and agrees that this is likely cellulitis versus small abscess versus infected seroma. Based on how well-appearing she is, OB suggested discharge with clindamycin and Percocet. Patient feels
comfortable with this plan. However, we did discuss the mildly elevated blood pressure and the mildly elevated LFTs. Although less likely, she could also be preeclamptic. Will continue to monitor blood pressure before contemplating
discharge
9:10 PM Case rediscussed with OB and suggested admission for blood pressure control and monitoring
Differential Diagnosis (but not limited to): Postoperative infected seroma, postoperative abscess, postoperative cellulitis
Testing considered: CT abdomen/pelvis but will discuss case with OB
Drug therapy (if applicable): OTC meds, please see d/c instruction regarding Rx drugs
Amount and/or Complexity of Data Reviewed
Clinical info obtained from: Patient
External data reviewed: N/A
Labs I independently reviewed (but not limited to): Mild leukocytosis, lactic acid within normal limits. Elevated LFTs
Radiology: N/A
Pulse Ox: not hypoxic
EKG independently reviewed: N/A
Water Team Leader: N/A
Critical Care: N/A
Risk of Complication:
Social Determinants of health: Good social support
Discussed with other providers: OB
Escalation of Care includes Admit/Obs: Given the postoperative infection in addition to post hypertension and elevated liver function testing, will admit
Occasional wrong word or 'sound a like' substitutions may have occurred due to the inherent limitations of voice recognition software. Read the chart carefully and recognize, using context, where substitutions have occurred.
*Critical Care Note
Total Time (30-74mins, 75-104mins- exclusive of procedures): Not Applicable
ED Attending Note
-
Portions of this chart may have been created with voice recognition software.� Occasional wrong word or��sound alike� substitutions may have occurred due to the inherent limitations of voice recognition software.
Discharge Plan
Departure
Patient Disposition: Admit
Date of Disposition: 03/23/24
Time of Disposition: 21:10
Admit to: Med/Surg
Presentation/result/management discussed w/ accepting MD/DO: TUBULAR RIVETER
Discharge Problem:
Post-operative infection, hypertension
Prescriptions:
New
clindamycin HCl 300 mg capsule
300 mg PO TID 10 Days Qty: 30 0RF
oxycodone 5 mg tablet
5 mg PO Q8H PRN (Reason: Pain) Qty: 14 0RF
No Action
Vitamin
1 tab PO DAILY
ibuprofen 600 mg Tablet
600 mg PO Q6HPRN PRN (Reason: cramps) Qty: 40 0RF
calcium carbonate [Calcium Antacid] 200 mg calcium (500 mg) Tablet,Chewable
400 mg PO Q6HPRN PRN (Reason: indigestion) Qty: 0 0RF
acetaminophen 325 mg Tablet
650 mg PO Q4HPRN PRN (Reason: mild pain) Qty: 0 0RF
ferrous sulfate 27 mg iron Tablet
27 mg PO DAILY
Referrals:
Mick Singer MD [Family Provider] -
Interventions
Interventions:
*Risk Screen - Suicide Last Done: 03/23/24 13:01
*General Assessment Last Done: 03/23/24 18:12
*Neglect/Abuse Screening Last Done: 03/23/24 13:01
ED- Fall Risk Assessment Last Done: 03/23/24 18:27
*ED COVID-19 Vaccine History Last Done: 03/23/24 18:12
ED-Skin Assessment Last Done: 03/23/24 19:44
Discharge Date and Time
Print Language: MOSOTHO
[2024-03-23] MEDS: MORPHINE SULFATE 4 MG IV (18:11)
[2024-03-23 18:27] VITALS: BP 151/104
[2024-03-23] MEDS: NSS 1000 IV (18:33)
[2024-03-23 18:35] VITALS: BP 157/102
--- NOTE | 2024-03-23 19:12 | EDRN ---
at 18:20 culture taken of lower abd incision and area was cleansed w/ saline and 2 sterile abd pads placed over site.
[2024-03-23 19:14] VITALS: BMI 38.3
--- NOTE | 2024-03-23 19:31 | WOUNDNOTE ---
WOUND/SKIN CARE NOTE: Pt identified by name and .
Lower abd and pubic area
Lower abd and pubic area w/ incision in pic
[2024-03-23 19:33] VITALS: BP 157/102
--- NOTE | 2024-03-23 19:34 | EDRN ---
Pt had 9 days ago and this morning the incision was leaking fluid. pt called doctor later in the day and was asked to check the incision and he told pt 'there was pus everywhere.' Pt has had a cough since being in ED because air is dry.
Pt has pain in lower abdomen only when coughing. No noted fever at home. Pain in lower abdomen noted at home around 1900. Pt is and using formula. No cp, sob, n/v/c/d, urinary symptoms, dizziness, weakness.
[2024-03-23 20:00] VITALS: BP 156/97
[2024-03-23] MEDS: PERCOCET 5/325 1 TABLET PO (20:40)
--- NOTE | 2024-03-23 20:45 | EDRN ---
Called pharmacy for clindamycin
--- NOTE | 2024-03-23 20:55 | CON.MD ---
Consultation - Medical
-
29yo s/p 1-C/S on 03/14/24 for Arrest of labor presented to the ER today due to concern for wound infection and significant drainage from her incision. She states starting around 5AM she noticed more pain at the incision and then later in the
morning started to have drainage and noticed redness around the incision. She denies fever at home. NO n/v. Has been and supplementing. No heavy lochia. Was treated for PEC w/ SF during labor but was not started on PO medication and
has not checked BP at home.
PMHx:Obesity
PSHx: C/S 03/14/24, [place] teeth
POBHx: C/S x1, SAB x1
Fhx: non contributory
SHx: neg
Meds: PNV
All: amoxicillin rash
Vitals: BP: 151-157/94-104
Gen: nad well appearing
Abd: On probing of the incision, I am able to create a small opening at the right edge of the incision with a qtip from which I am able to drain a copious amount of off white fluid. I continued to express drainage until only minimal amounts were
illicited. I am able to track just 1cm medial below the incision with my qtip. Underlying tissue feels intact. I am not able to create any further openings along the incision with my qtip. There is erythema and induration above the incision and
extending down to the mons pubis. With ttp
CBC: 11.1/9.3/472
AST/ALT: 42/45
Cr: 0.6
A/P: 29yo s/p 1-LTCS c/b Wound infection and elevated BPs
1. Wound Infection
-afebrile
-no s/sx of systemic infection, wound was able to be opened slightly to allow for continued drainage
-wound culture collected
-Will treat with clindamycin, patient already received first dose IV and will continue with PO dose 300mg Q6Hr x 10 days
2. Preeclampsia
-While in the ER she was found to have multiple elevated BPs in the 150s systolic so I asked that she go up to L&D for monitoring
-no sx of PEC
-labs done show slight LFt elevation (not twice normal)
[2024-03-23 21:00] VITALS: BP 155/94
[2024-03-23] MEDS: CLEOCIN 50 IV (21:16)
== END 2024-03-23 21:33 ==
LOC: EMR 12:50
PROVIDERS: Emergency Medicine; EMERGENCY PHYSICIAN Student in an Organized Health Care Education/Training Program; FAMILY PHYSICIAN Family Medicine; OTHER PHYSICIAN Obstetrics & Gynecology
DX: O86.09 Infection of obstetric surgical wound, other surgical site (principal); O14.95 Unspecified pre-eclampsia, complicating the puerperium
CPT/HCPCS: 80053; 83605; 85025; 87070; 87205; 96361; 96365; 96375; 99285

== ENCOUNTER 2024-03-23 21:37 | Observation (INO) | payer OTHER, SELFPAY ==
[2024-03-23 22:24] VITALS: BMI 36.6
[2024-03-24] MEDS: CLEOCIN 300 MG PO ×2 (02:28→08:34)
[2024-03-24] MEDS: MOTRIN 600 MG PO (05:36)
[2024-03-24] MEDS: TYLENOL 1000 MG PO (05:36)
[2024-03-24] MEDS: FEOSOL 325 MG PO (08:33)
[2024-03-24] MEDS: TRANDATE 200 MG PO (08:33)
[2024-03-24] MEDS: PRENATAL PLUS 1 TABLET PO (08:33)
--- NOTE | 2024-03-24 14:15 | CM ---
Met with pt and her at bedside
pt reports she lives with her and son in a 2 story home; no steps to enter, 12 steps to 2nd fl
Independent, on maternity leave from work, drives
DME - breast pump
HH - no past hx
Has ride at discharge
PCP - Mick Singer
Pharm - [facility]
Given OBS letter
CM will follow for discharge needs
Plan - anticipate home no needs
== END 2024-03-24 13:50 | disposition home or self-care (01) ==
LOC: LDRP 21:37
PROVIDERS: ADMITTING PHYSICIAN Obstetrics & Gynecology; FAMILY PHYSICIAN Family Medicine
DX: O86.01 Infection of obstetric surgical wound, superficial incisional site (principal); O14.05 Mild to moderate pre-eclampsia, complicating the puerperium; Z88.0 Allergy status to penicillin
CPT/HCPCS: 36415; 86850; 86900; 86901; 87070; 87205